=== PATIENT | male | born 1980 | race Two or more races ===

== ENCOUNTER 2018-05-11 21:16 | Emergency (ER) | payer MEDICAID ==
[~2018-05-11] VITALS: Ht 185.4 cm; Wt 81.6 kg
[2018-05-11 21:19] VITALS: BP 131/69
--- NOTE | 2018-05-11 21:19 | NUR ---
ED Nurse Note: Patient presents from [facility] with recent ETOh consumption. patient reports drinking nearly 3L of alcohol.
--- NOTE | 2018-05-11 21:34 | Emergency Room Report ---
History of Present Illness General Chief Complaint: Alcohol Intoxication Source: Patient, EMS (Gerhard Kraft DO) Present Illness HPI Patient presents with reports of having thoughts of hurting himself Patient cannot give specifics of plan Reports that he has a diagnosis of bipolar which she does not believe yesterday has Patient was at a sober living facility Reports that he had a bad Pimentel's Day started drinking earlier today And requested the paramedics to be summoned Denies any chest pain denies any vomiting or diarrhea denies any headache (Gerhard Kraft DO) Allergies: Coded Allergies: No Known Allergies (Unverified , 05/11/18) Patient History Past Medical History: see triage record Pertinent Family History: none Reviewed Nursing Documentation: PMH: Agreed; PSxH: Agreed (Gerhard Kraft DO) Nursing Documentation-PMH Past Medical History: No History, Except For (Gerhard Kraft DO) Review of Systems All Other Systems: negative except mentioned in HPI (Gerhard Kraft DO) Physical Exam Vital Signs Date Time Temp Pulse Resp B/P (MAP) Pulse Ox O2 Delivery O2 Flow Rate FiO2 05/11/18 21:06 98.2 81 18 131/69 99 Room Air Sp02 EP Interpretation: reviewed, normal General Appearance: well appearing, no apparent distress Head: normocephalic, atraumatic Eyes: bilateral eye PERRL, bilateral eye EOMI ENT: hearing grossly normal, normal pharynx, TMs + canals normal, uvula midline Neck: full range of motion, supple, no meningismus, no bony tend Respiratory: lungs clear, normal breath sounds, no rhonchi, no respiratory distress, no retraction, no accessory muscle use Cardiovascular #1: normal peripheral pulses, regular rate, rhythm, no edema, no gallop, no JVD, no murmur Gastrointestinal: normal bowel sounds, non tender, soft, no mass, no organomegaly, non-distended, no guarding, no hernia, no pulsatile mass, no rebound Genitourinary: no CVA tenderness Musculoskeletal: normal inspection Neurologic: oriented x3, responsive, trust accounts supervisor III-XII nml as tested, motor strength/ tone normal, sensory intact Psychiatric: other - Verbalizing suicidal ideation Skin: normal color, no rash, warm/dry, palpation normal Lymphatic: normal inspection, no adenopathy (Gerhard Kraft DO) Medical Decision Making Homeless Attestation I, The treating physician Dr. Hinojosa, have assessed and feel that patient is medically stable for discharge to an outpatient disposition. (Sheng Hinojosa MD) Diagnostic Impression: Primary Impression: Acute alcoholic intoxication Qualified Codes: F10.929 - Alcohol use, unspecified with intoxication, unspecified ER Course See above note. Patient evaluated by Dr. Muñiz and she feels he is stable for discharge. Discussed discharge plans with patient who feels safe and able to be discharged. No evidence of alcohol withdrawal at this time. (Sheng Hinojosa MD) Last Vital Signs Date Time Temp Pulse Resp B/P (MAP) Pulse Ox O2 Delivery O2 Flow Rate FiO2 05/11/18 21:06 98.2 81 18 131/69 99 Room Air (Gerhard Kraft DO) Last Vital Signs Date Time Temp Pulse Resp B/P (MAP) Pulse Ox O2 Delivery O2 Flow Rate FiO2 05/12/18 16:14 98.0 75 18 130/78 98 Room Air Status: improved (Sheng Hinojosa MD) Disposition: HOME, SELF-CARE Condition: Improved Gehrard Kraft DO May 11, 2018 21:34 Sheng Hinojosa MD May 12, 2018 15:49
--- NOTE | 2018-05-11 22:05 | NUR ---
Nursing supervisor unloading notified of need os sitter at bedside.
--- NOTE | 2018-05-11 22:26 | NUR ---
ED Nurse Note: Patient resting comfortably with no complaints of pain or discomfort.
[2018-05-11 22:36] LABS: BASOPHILS % (AUTO) 0.6 % (0.0-2.0); EOSINOPHILS % (AUTO) 0.4 % (0.0-3.0); HEMATOCRIT 47.8 % (42.0-52.0); HEMOGLOBIN 16.6 G/DL (14.2-18.0); LYMPHOCYTES % (AUTO) 14.9 % (20.0-45.0); MEAN CORPUSCULAR VOLUME 92 FL (80-99); MONOCYTES % (AUTO) 2.5 % (1.0-10.0); NEUTROPHILS % (AUTO) 81.7 % (45.0-75.0); PLATELET COUNT 253 K/UL (150-450); RED CELL DISTRIBUTION WIDTH 10.8 % (11.6-14.8); WHITE BLOOD COUNT 15.7 K/UL (4.8-10.8)
[2018-05-11 22:51] LABS: ANION GAP 7 mmol/L (5-15); BLOOD UREA NITROGEN 6 mg/dL (7-18); CARBON DIOXIDE 32 MMOL/L (21-32); CHLORIDE 111 MMOL/L (98-107); CREATININE 0.7 MG/DL (0.55-1.30); POTASSIUM 3.7 MMOL/L (3.5-5.1); SODIUM 150 MMOL/L (136-145)
[2018-05-11 22:52] LABS: CALCIUM 8.2 MG/DL (8.5-10.1)
[2018-05-11 22:57] LABS: ALANINE AMINOTRANSFERASE 68 U/L (12-78); ALBUMIN 3.5 G/DL (3.4-5.0); ALBUMIN/GLOBULIN RATIO 1.1 (1.0-2.7); ALKALINE PHOSPHATASE 119 U/L (46-116); ASPARTATE AMINO TRANSFERASE 56 U/L (15-37); BILIRUBIN,TOTAL 0.5 MG/DL (0.2-1.0)
--- NOTE | 2018-05-11 23:46 | NUR ---
ED Nurse Note: Patient resting comfortably, is cooperative and even spirited. Patient does no express intent to harm himself. Patient expresses concern about having a place to live.
--- NOTE | 2018-05-12 00:36 | NUR ---
ED Nurse Note: Patient remains cordial, has no complaints at this time, is attempting to get some rest.
--- NOTE | 2018-05-12 01:45 | NUR ---
ED Nurse Note: patient is sleeping , easily arousable, has no complaints of pain or discomfort. A&Ox4.
--- NOTE | 2018-05-12 02:56 | NUR ---
ED Nurse Note: patient is sleeping.
--- NOTE | 2018-05-12 03:46 | NUR ---
ED Nurse Note: Patient is sleeping, easily arousable. Patient requested orange juice to drink, request accomodated. Patient remains cordial and cooperative, no expression of intent to harm self. no sitter at bedside.
[2018-05-12 04:02] VITALS: BP 120/62
--- NOTE | 2018-05-12 04:52 | NUR ---
ED Nurse Note: Patient is sleeping soundly, no s/s of acute distress. no sitter at bedside.
[2018-05-12 05:50] LABS: BASOPHILS % (AUTO) 0.8 % (0.0-2.0); EOSINOPHILS % (AUTO) 0.6 % (0.0-3.0); HEMATOCRIT 41.2 % (42.0-52.0); HEMOGLOBIN 14.5 G/DL (14.2-18.0); MEAN CORPUSCULAR VOLUME 92 FL (80-99); MONOCYTES % (AUTO) 3.7 % (1.0-10.0); PLATELET COUNT 207 K/UL (150-450); RED BLOOD COUNT 4.49 M/UL (4.70-6.10); RED CELL DISTRIBUTION WIDTH 11.2 % (11.6-14.8); WHITE BLOOD COUNT 10.8 K/UL (4.8-10.8)
[2018-05-12 06:07] LABS: ANION GAP 11 mmol/L (5-15); BLOOD UREA NITROGEN 5 mg/dL (7-18); CALCIUM 7.4 MG/DL (8.5-10.1); CARBON DIOXIDE 27 MMOL/L (21-32); CHLORIDE 108 MMOL/L (98-107); CREATININE 0.6 MG/DL (0.55-1.30); POTASSIUM 3.4 MMOL/L (3.5-5.1); SODIUM 146 MMOL/L (136-145)
[2018-05-12 06:11] LABS: ALANINE AMINOTRANSFERASE 56 U/L (12-78); ALBUMIN/GLOBULIN RATIO 1.1 (1.0-2.7); ALKALINE PHOSPHATASE 102 U/L (46-116); ASPARTATE AMINO TRANSFERASE 45 U/L (15-37); BILIRUBIN,TOTAL 0.5 MG/DL (0.2-1.0)
[2018-05-12 06:30] VITALS: BP 120/65
--- NOTE | 2018-05-12 07:14 | NUR ---
HAND-OFF: Report given to Sofya SOLORZANO. Patient A&Ox4, given a sandwich and orange juice prior to shift change.
--- NOTE | 2018-05-12 08:00 | NUR ---
ED Nurse Note: pt. awake and alert and very cooperative. gave water to the pt.
[2018-05-12 08:14] VITALS: BP 124/76
[2018-05-12] MEDS ORDERED: NKM (08:52)
--- NOTE | 2018-05-12 09:45 | NUR ---
ED Nurse Note: Pt states he needs some medication for his alcohol withdrawal. Noted bilateral hand tremors. Dr Simmons notified and waiting for new orders.
[2018-05-12 10:00] VITALS: BP 132/80
[2018-05-12] MEDS ORDERED: LORazepam Inj 2mg/ml 1ml IV ONE (10:15)
--- NOTE | 2018-05-12 11:30 | NUR ---
ED Nurse Note: Lunch Tray provided to patient.
[2018-05-12 12:46] VITALS: BP 122/85
--- NOTE | 2018-05-12 14:49 | NUR ---
ED Nurse Note: Dr Muñiz at the bed side.
--- NOTE | 2018-05-12 14:50 | NUR ---
ED Nurse Note: Dr Muñiz verbally ordered valium 10mg PO.
--- NOTE | 2018-05-12 15:04 | Consultation ---
History of Present Illness General Chief Complaint: Alcohol Intoxication Present Illness HPI 37 yo male who presents with thoughts of hurting himself the pt has hx of bipolar do. the pt was anxious and was withdrawing the pt stated that [place] the pt denied si/hi the pt stated that he may not go back to his sl/ the pt stated that he is not depressed nor suicidal the pt stated that he will go to his friends house Allergies: Coded Allergies: No Known Allergies (Unverified , 05/11/18) Medication History Scheduled No Known Medications* (NKM - No Known Medications*), 0 ., (Reported) Patient History History Provided By: Patient, Medical Record, PMD Healthcare decision maker Resuscitation status Advanced Directive on File Review of Systems Psychiatric: Reports: prior hx, anxiety Physical Exam General Appearance: WD/WN, no apparent distress, alert Neurologic: oriented x 3, responsive Last 24 Hour Vital Signs Date Time Temp Pulse Resp B/P (MAP) Pulse Ox O2 Delivery O2 Flow Rate FiO2 05/12/18 12:46 97.7 82 19 122/85 97 Room Air 05/12/18 10:00 98.6 70 16 132/80 98 Room Air 05/12/18 08:14 98.2 74 22 124/76 96 Room Air 05/12/18 06:30 98.2 94 20 120/65 95 Room Air 05/12/18 04:02 98.2 87 10 120/62 99 Room Air 05/11/18 21:19 81 18 Room Air 05/11/18 21:19 98.2 78 18 131/69 99 Room Air 05/11/18 21:06 98.2 81 18 131/69 99 Room Air Intake and Output 05/11/18 05/12/18 18:59 06:59 Intake Total 2000 ml Balance 2000 ml Intake Oral 0 ml IV Total 2000 ml Laboratory Tests Test 05/11/18 22:21 05/12/18 05:10 White Blood Count 15.7 K/UL (4.8-10.8) H 10.8 K/UL (4.8-10.8) Red Blood Count 5.20 M/UL (4.70-6.10) 4.49 M/UL (4.70-6.10) L Hemoglobin 16.6 G/DL (14.2-18.0) 14.5 G/DL (14.2-18.0) Hematocrit 47.8 % (42.0-52.0) 41.2 % (42.0-52.0) L Mean Corpuscular Volume 92 FL (80-99) 92 FL (80-99) Mean Corpuscular Hemoglobin 32.0 PG (27.0-31.0) H 32.4 PG (27.0-31.0) H Mean Corpuscular Hemoglobin Concent 34.8 G/DL (32.0-36.0) 35.3 G/DL (32.0-36.0) Red Cell Distribution Width 10.8 % (11.6-14.8) L 11.2 % (11.6-14.8) L Platelet Count 253 K/UL (150-450) 207 K/UL (150-450) Mean Platelet Volume 6.9 FL (6.5-10.1) 7.3 FL (6.5-10.1) Neutrophils (%) (Auto) 81.7 % (45.0-75.0) H 69.0 % (45.0-75.0) Lymphocytes (%) (Auto) 14.9 % (20.0-45.0) L 26.0 % (20.0-45.0) Monocytes (%) (Auto) 2.5 % (1.0-10.0) 3.7 % (1.0-10.0) Eosinophils (%) (Auto) 0.4 % (0.0-3.0) 0.6 % (0.0-3.0) Basophils (%) (Auto) 0.6 % (0.0-2.0) 0.8 % (0.0-2.0) Sodium Level 150 MMOL/L (136-145) H 146 MMOL/L (136-145) H Potassium Level 3.7 MMOL/L (3.5-5.1) 3.4 MMOL/L (3.5-5.1) L Chloride Level 111 MMOL/L (98-107) H 108 MMOL/L (98-107) H Carbon Dioxide Level 32 MMOL/L (21-32) 27 MMOL/L (21-32) Anion Gap 7 mmol/L (5-15) 11 mmol/L (5-15) Blood Urea Nitrogen 6 mg/dL (7-18) L 5 mg/dL (7-18) L Creatinine 0.7 MG/DL (0.55-1.30) 0.6 MG/DL (0.55-1.30) Estimat Glomerular Filtration Rate > 60 mL/min (>60) > 60 mL/min (>60) Glucose Level 96 MG/DL (74-106) 98 MG/DL (74-106) Calcium Level 8.2 MG/DL (8.5-10.1) L 7.4 MG/DL (8.5-10.1) L Total Bilirubin 0.5 MG/DL (0.2-1.0) 0.5 MG/DL (0.2-1.0) Aspartate Amino Transf (AST/SGOT) 56 U/L (15-37) H 45 U/L (15-37) H Alanine Aminotransferase (ALT/SGPT) 68 U/L (12-78) 56 U/L (12-78) Alkaline Phosphatase 119 U/L (46-116) H 102 U/L (46-116) Total Protein 6.7 G/DL (6.4-8.2) 5.8 G/DL (6.4-8.2) L Albumin 3.5 G/DL (3.4-5.0) 3.0 G/DL (3.4-5.0) L Globulin 3.2 g/dL 2.8 g/dL Albumin/Globulin Ratio 1.1 (1.0-2.7) 1.1 (1.0-2.7) Salicylates Level 1.1 ug/mL (2.8-20) L Urine Opiates Screen Negative (NEGATIVE) Acetaminophen Level < 2 MCG/ML (10-30) L Urine Barbiturates Screen Negative (NEGATIVE) Phencyclidine (PCP) Screen Negative (NEGATIVE) Urine Amphetamines Screen Negative (NEGATIVE) Urine Benzodiazepines Screen Negative (NEGATIVE) Urine Cocaine Screen Negative (NEGATIVE) Urine Marijuana (THC) Screen Negative (NEGATIVE) Serum Alcohol 299 mg/dL 134 mg/dL Height (Feet): 6 Height (Inches): 1.00 Weight (Pounds): 180 Assessment/Plan Problem List: (1) Alcohol dependence ICD Codes: F10.20 - Alcohol dependence, uncomplicated SNOMED: 04676388 (2) Alcohol withdrawal ICD Codes: F10.239 - Alcohol dependence with withdrawal, unspecified SNOMED: 473878859 Assessment/Plan valium 10mg x 1 time the pt is not at imminent dts/dto dc [place] Darryl Muñiz MD May 12, 2018 15:04
--- NOTE | 2018-05-12 15:09 | NUR ---
ED Nurse Note: Dr Mary Kay diehl to discharge the patient and ER MD aware.
[2018-05-12 16:14] VITALS: BP 130/78
--- NOTE | 2018-05-12 16:14 | NUR ---
ED Nurse Note: Pt is cleared by Health Care Provider for discharge. Homeless DC form filled out. DC instructions was given and explained to pt and verbalized understanding of teachings given. All medical devices such as ID band/IV removed. Pt AAO x4, ambulatory and left with all personal belongings.
--- NOTE | 2018-05-12 16:14 | NUR ---
ED Nurse Note: Homeless snf, Alcohol rehab referrals provided to patient.
== END 2018-05-12 16:22 | disposition home or self-care (01) ==
LOC: EDBD 21:16 → EMR 21:55
DX: F10.230 Alcohol dependence with withdrawal, uncomplicated (principal); F10.220 Alcohol dependence with intoxication, uncomplicated; F17.200 Nicotine dependence, unspecified, uncomplicated; Z59.0 Homelessness
CPT/HCPCS: 36415; 80053; 80307; 80329; 85025; 96361; 96374; 99284